=== PATIENT | female | born 1950 | race Two or more races ===

== ENCOUNTER → 2016-03-09 | Outpatient (CLI) | payer OTHER ==
--- NOTE | 2016-03-09 08:59 | MA ---
Screening Digital Mammogram Clinical Indications: Routine screening. Technique: Standard cephalocaudal and mediolateral oblique projections are obtained. This examinati on is processed by the [employer] computer aided detection system. Comparison: October 2013 and May 2010 Breast density: B; There are scattered fibroglandular densities. Findings: CAD was reviewed. No suspicious findings are identified. Impression: Negative mammogram. . BI-RADS 1. Recommendation: Routine screening is recommended in one year. [facility] will send a result letter to the patient. Negative mammography should not preclude additional workup of a clinically suspicious finding. The patient's information is entered into a reminder system with a target due date for her next mammo gram.
== END ==
LOC: BMCIMAGING 08:10
DX: Z12.31 Encounter for screening mammogram for malignant neoplasm of breast (principal)
CPT/HCPCS: G0202

== ENCOUNTER → 2016-03-23 | Outpatient (CLI) | payer OTHER ==
--- NOTE | 2016-03-23 17:15 | MR ---
MRI of the Left Shoulder History: Shoulder pain, evaluate for rotator cuff tendon tear. Injury. Technique: Axial proton density, oblique coronal, and sagittal T1 and T2 sequences were acquired. Findings: Distal supraspinatus tendinosis is associated with a focal high-grade partial thickness bu rsal surface tear of the anterior distal fibers of the supraspinatus at the greater tuberosity footpr int. The infraspinatus tendon is intact. The subscapularis and teres minor appear intact. The long head biceps tendon is normally positioned and intact, with tendinosis through the rotator interval and int raarticular aspect. The glenoid labrum is normal in appearance. No articular cartilage lesion is identified. The acromioclavicular joint is benign in features. No greater tuberosity fracture identified. Impression 1. Distal supraspinatus tendinosis, with focal high-grade partial thickness bursal surface tear of t he anterior distal fibers at the greater tuberosity attachment. 2. Long head biceps tendinosis.
== END ==
LOC: FIMAGING 10:26
PROVIDERS: ATTEND Orthopaedic Surgery
DX: M75.32 Calcific tendinitis of left shoulder (principal); M75.22 Bicipital tendinitis, left shoulder

== ENCOUNTER 2016-12-13 09:51 | Emergency (ER) | payer OTHER ==
[2016-12-13 10:05] VITALS: TEMP 98.1
[2016-12-13] MEDS ORDERED: KETAMINE 100 MG/10 ML SYR IVP ONE ×2 (10:14)
--- NOTE | 2016-12-13 10:22 | CPEKG ---
Heart Rate: 56 RR Interval: 1071 P-R Interval: 172 QRSD Interval: 78 QT Interval: 464 QTC Interval: 448 P [place]: 39 QRS [place]: -17 T Wave [place]: -19 EKG Severity - BORDERLINE ECG - EKG Impression: SINUS RHYTHM EKG Impression: PROBABLE LEFT ATRIAL ABNORMALITY EKG Impression: BORDERLINE LEFT AXIS DEVIATION EKG Impression: BORDERLINE T ABNORMALITIES, INFERIOR LEADS Electronically Signed By: Milagro Russo 13-Dec-2016 14:54:15
--- NOTE | 2016-12-13 10:29 | EDPHY ---
H & P Stated Complaint: Seen at [facility] yesterday;dx'd w/UTI,started antibx;still has abd pain/brower Time Seen by Provider: 12/13/16 10:08 HPI/ROS: CHIEF COMPLAINT: migraine, epigastric pain HISTORY OF PRESENT ILLNESS: 66-year-old female history of chronic migraine complaining of epigastric pain since last evening. She was seen at a [facility] yesterday morning for complaints of migraine and also diagnosed with UTI and started on Keflex. She has had nausea vomiting however this is consistent with her chronic headache. She currently is complaining of a non thunderclap holocephalic headache as well which was not relieved with Imitrex. Bowel movements have been normal. No dyspnea. No syncope or near syncope. No gait instability. No head injury. No slurred speech. PRIMARY CARE PROVIDER: Dr. Audra Phelps REVIEW OF SYSTEMS: A ten point review of systems was performed and is negative with the exception of the items mentioned in the HPI PAST MEDICAL & SURGICAL HISTORY: Chronic migraine. No history of abdominal surgeries or chronic abdominal pathology. SOCIAL HISTORY: nonsmoker PHYSICAL EXAM (Prior to examination, patient consented to physical exam, hands were washed and my usual and customary physical exam procedures followed) 1) GENERAL: Well-developed, well-nourished, alert and oriented. Appears anxious , she is tearful, hyperventilating . 2) HEAD: Normocephalic, atraumatic 3) HEENT: Pupils equal, round, reactive to light bilaterally. Sclera anicteric. Nasopharynx, oropharynx, clear, no lesions. Ears bilaterally with normal tympanic membranes. 4) NECK: Full range of motion, no meningeal signs. 5) LUNGS: Clear auscultation bilaterally, no wheezes, no rhonchi, no retractions. 6) HEART: Regular rate and rhythm, no murmur, no heave, no gallop. 7) ABDOMEN: Tender to palpation epigastrium negative McBurney's, negative Gardner's, negative Rovsing's, negative peritoneal sign, 8) MUSCULOSKELETAL: Moving all extremities, no focal areas of tenderness, no obvious trauma. No peripheral edema or discoloration. 9) BACK: No CVA tenderness, no midline vertebral tenderness, no fluctuance, no step-off, no obvious trauma, no visual or palpable abnormality. 10) SKIN: No rash, no petechiae. 11) Psychiatric: Patient is oriented X 3, there is no agitation. 12) NEURO: Awake, alert, and oriented to person, place and time. Answers questions appropriately. There were no obvious focal neurologic abnormalities. No cerebellar dysfunction. Cranial nerves 2 through to 12 intact. Normal steady gait. Upper and lower extremities bilaterally with strength 5 / 5, reflexes 2+. DIFFERENTIAL DIAGNOSIS: My differential diagnosis includes, but is not limited to, acute appendicitis, acute cholecystitis, bowel obstruction, acute pancreatitis, ovarian torsion, gastritis and urinary tract infection. The patient understands that this diagnosis is provisional and can never be 100% accurate. This is a partial list of diagnoses considered. These considerations are based on history, physical exam, past history and reassessment. - Personal History Current Tetanus Diphtheria and Acellular Pertussis (TDAP): Yes - Medical/Surgical History Hx Asthma: No Hx Chronic Respiratory Disease: No Hx Diabetes: No Hx Cardiac Disease: No Hx Renal Disease: No Hx Cirrhosis: No Hx Alcoholism: No Hx HIV/AIDS: No Hx Splenectomy or Spleen Trauma: No Other PMH: MIGRAINES - Social History Smoking Status: Former smoker Constitutional: Initial Vital Signs Temperature (C) 36.7 C 12/13/16 10:02 Heart Rate 65 12/13/16 10:02 Respiratory Rate 20 12/13/16 10:02 Blood Pressure 151/75 H 12/13/16 10:02 O2 Sat (%) 98 12/13/16 10:02 O2 Delivery Mode Room Air Allergies/Adverse Reactions: ibuprofen [From Advil] Allergy (Verified 12/13/16 10:05) Home Medications: Medication Instructions Recorded Cephalexin [Keflex (*)] 500 mg PO 12/13/16 Medical Decision Making - Diagnostics Imaging Results: Imaging Impressions Chest X-Ray 12/13/16 10:17 Impression: Decreased inspiration. Suspect new diffuse interstitial lung disease. Might this patient have early viral (?influenza) pneumonia? Abdomen CT 12/13/16 12:15 Impression: 1. Diverticulosis without definite diverticulitis. 2. Circumferential wall thickening in the rectum. Differential would include hemorrhoids, inflammation, or carcinoma. 3. No evidence for appendicitis. 4. Mild fibrosis of both lower lobes. 5. Multilevel degenerative change lumbar spine. Grade 1 anterior spondylolisthesis of L4 on L5. Results called and discussed with Bonny Polo at 1312 hours 13 December 2016. ED Course/Re-evaluation: 10:20 a.m.: Discussed the case with secondary supervising physician Dr. Russo. The patient is quite anxious at this time complaining epigastric, chest, headache pain pain. Will administer IV ketamine and re-evaluate. 12:10 p.m.: Re-evaluation, abdominal pain has resolved. However upon palpation abdomen she is point tender to palpation left lower quadrant. We discussed possibility of diverticulitis. Indications risks benefits of CT imaging discussed and she consents. 1:50 p.m.: Re-evaluation, she is feeling improvement, abdominal pain and headache resolved. She was given further dose of IV Decadron for her headache. We discussed her imaging results showing no evidence of diverticulitis or appendicitis or bowel obstruction. She is noted to have continued bacteriuria and pyuria and recommend she continue on her Keflex. Will also add Pyridium to her medication regimen. We also discussed the thickening of the rectum seen on CT imaging. Patient denies pain with defecation. She has previously seen [facility] 5 years ago for colonoscopy. Recommend follow up with Gastroenterology. Informed that malignancy is not ruled out. Regarding the patient's headache, she has a longstanding history of chronic migraine, this feels like her usual migraine which is not relieved with Imitrex. She has subsequent relief of symptoms with Toradol and ketamine. She was also given IV Decadron. Furthermore she has a nonfocal neurologic exam. Do not think that CT imaging the head indicated, doubt subarachnoid hemorrhage, doubt intracranial hemorrhage, doubt malignancy. Doubt cardiac etiology in the absence of a normal troponin symptoms occurring for at least 12 hours. The patient feels comfortable being discharged. All questions and concerns addressed by myself. At Discharge she appears well, smiling. - Data Points Laboratory Results: Laboratory Results 12/13/16 10:20 12/13/16 10:20 12/13/16 12/13/16 12/13/16 11:20 10:20 10:20 WBC 10.87 10^3/uL H 10^3/uL (3.80-9.50) RBC 4.79 10^6/uL 10^6/uL (4.18-5.33) Hgb 15.1 g/dL g/dL (12.6-16.3) Hct 43.8 % % (38.0-47.0) MCV 91.4 fL fL (81.5-99.8) MCH 31.5 pg pg (27.9-34.1) MCHC 34.5 g/dL g/dL (32.4-36.7) RDW 12.6 % % (11.5-15.2) Plt Count 267 10^3/uL 10^3/uL (150-400) MPV 9.7 fL fL (8.7-11.7) Neut % (Auto) 74.7 % H % (39.3-74.2) Lymph % (Auto) 18.2 % % (15.0-45.0) Chambers % (Auto) 4.7 % % (4.5-13.0) Eos % (Auto) 1.1 % % (0.6-7.6) Baso % (Auto) 0.5 % % (0.3-1.7) Nucleat RBC Rel Count 0.0 % % (0.0-0.2) Absolute Neuts (auto) 8.12 10^3/uL H 10^3/uL (1.70-6.50) Absolute Lymphs (auto) 1.98 10^3/uL 10^3/uL (1.00-3.00) Absolute Monos (auto) 0.51 10^3/uL 10^3/uL (0.30-0.80) Absolute Eos (auto) 0.12 10^3/uL 10^3/uL (0.03-0.40) Absolute Basos (auto) 0.05 10^3/uL 10^3/uL (0.02-0.10) Absolute Nucleated RBC 0.00 10^3/uL 10^3/uL (0-0.01) Immature Gran % 0.8 % % (0.0-1.1) Immature Gran # 0.09 10^3/uL 10^3/uL (0.00-0.10) Sodium 138 mEq/L mEq/L (134-144) Potassium 3.8 mEq/L mEq/L (3.5-5.2) Chloride 104 mEq/L mEq/L (97-110) Carbon Dioxide 23 mEq/l mEq/l (22-31) Anion Gap 11 mEq/L mEq/L (8-16) BUN 9 mg/dL mg/dL (7-23) Creatinine 0.6 mg/dL mg/dL (0.6-1.0) Estimated GFR > 60 Glucose 117 mg/dL H mg/dL (70-100) Calcium 8.9 mg/dL mg/dL (8.5-10.4) Total Bilirubin 0.5 mg/dL mg/dL (0.1-1.4) Conjugated Bilirubin 0.1 mg/dL mg/dL (0.0-0.5) Unconjugated Bilirubin 0.4 mg/dL mg/dL (0.0-1.1) AST 35 IU/L IU/L (14-46) ALT 40 IU/L IU/L (9-52) Alkaline Phosphatase 95 IU/L IU/L (38-126) Troponin I < 0.012 ng/mL ng/mL (0.000-0.034) Total Protein 7.0 g/dL g/dL (6.3-8.2) Albumin 4.2 g/dL g/dL (3.5-5.0) Lipase 63 IU/L IU/L (23-300) Urine Color YELLOW Urine Appearance HAZY Urine pH 7.0 (5.0-7.5) Ur Specific Jonancy 1.012 (1.002-1.030) Urine Protein NEGATIVE (NEGATIVE) Urine Ketones NEGATIVE (NEGATIVE) Urine Blood NEGATIVE (NEGATIVE) Urine Nitrate NEGATIVE (NEGATIVE) Urine Bilirubin NEGATIVE (NEGATIVE) Urine Urobilinogen NEGATIVE EU EU (0.2-1.0) Ur Leukocyte Esterase 3+ H (NEGATIVE) Urine RBC 25-50 /hpf H /hpf (0-3) Urine WBC 25-50 /hpf H /hpf (0-3) Ur Epithelial Cells TRACE /lpf /lpf (NONE-1+) Urine Bacteria TRACE /hpf H /hpf (NONE SEEN) Urine Mucus TRACE /lpf /lpf (NONE-1+) Ur Culture Indicated? INDICATED H (NI) Urine Glucose NEGATIVE (NEGATIVE) Medications Given: Discontinued Medications Acetaminophen (Tylenol) 650 mg PO EDNOW ONE Stop: 12/13/16 12:44 Last Admin: 12/13/16 12:47 Dose: Not Given Dexamethasone (Decadron Injection) 10 mg IVP EDNOW ONE Stop: 12/13/16 13:53 Last Admin: 12/13/16 14:14 Dose: 10 mg Ketamine HCl (Ketamine) 14.5 mg 0.2 mg/kg (14.5 mg) IVP EDNOW ONE Stop: 12/13/16 10:15 Last Admin: 12/13/16 10:33 Dose: 14.5 mg Morphine Sulfate (Morphine) 4 mg IVP EDNOW ONE Stop: 12/13/16 12:16 Last Admin: 12/13/16 12:48 Dose: 2 mg Departure - Departure Disposition: Home, Routine, Self-Care Clinical Impression: Abdominal pain Qualifiers: Abdominal location: lower abdomen, unspecified Qualified Code(s): R10.30 - Lower abdominal pain, unspecified Headache Qualifiers: Headache type: unspecified Headache chronicity pattern: acute headache Intractability: not intractable Qualified Code(s): R51 - Headache Condition: Good Instructions: Migraine Headache (ED), Acute Abdominal Pain (ED) Additional Instructions: Seek immediate medical attention if you develop new or worsening symptoms, if you develop fevers, chills, inability to tolerate oral intake or any other symptoms that concerns you. Thickening of your rectum was noted on CT scan. Specific origin of this is not yet completely clear. Recommend you follow up with a geologist petroleum. Referrals: Audra Phelps MD [Primary Care Provider] - 1-2 days without fail Thomas Butler MD [Medical Doctor] - 5-7 days, call for appt. (Dr. Butler is a geologist petroleum)
[2016-12-13 10:31] LABS: PLATELET COUNT 267 10^3/uL (150-400)
[2016-12-13] MEDS ORDERED: IOPAMIDOL (ISOVUE-300) 100 ML BTL ONE ×2 (12:19)
[2016-12-13] MEDS ORDERED: ACETAMINOPHEN 325 MG TAB PO ONE ×2 (12:43)
[2016-12-13] MEDS ORDERED: DEXAMETHASONE 10 MG/ML VIAL IVP ONE ×2 (13:52)
[2016-12-13 14:14] VITALS: RESP 16
[2016-12-13 14:55] VITALS: BP 135/68; PULSE 65; O2SAT 95
== END 2016-12-13 14:57 | disposition home or self-care (01) ==
DX: R10.30 Lower abdominal pain, unspecified (principal); R51 Headache; Z87.891 Personal history of nicotine dependence
CPT/HCPCS: 71020; 74177; 93005; 96374; 96375; 99285; J1100; Q9967

== ENCOUNTER → 2018-02-18 | Outpatient (CLI) | payer OTHER | LOC: BMCIMAGING 12:42 | PROVIDERS: ATTEND Internal Medicine | DX: R22.0 Localized swelling, mass and lump, head (principal); M84.88 Other disorders of continuity of bone, other site ==

== ENCOUNTER → 2018-02-20 | Outpatient (CLI) | payer OTHER ==
[~2018-02-20] MED LIST: IOPAMIDOL (ISOVUE 370) 100 ML BTL IV ONE
== END ==
LOC: FIMAGING 09:32
PROVIDERS: ATTEND Internal Medicine
DX: M89.9 Disorder of bone, unspecified (principal)
CPT/HCPCS: 70470; Q9967; 82565-PO

== ENCOUNTER → 2018-02-25 | Outpatient (CLI) | payer OTHER ==
[~2018-02-25] MED LIST changes: -IOPAMIDOL (ISOVUE 370) 100 ML BTL IV ONE; +LIDOCAINE 1% 300 MG/30 ML SDV ONE
== END ==
LOC: FIMAGING 07:06
PROVIDERS: ATTEND Internal Medicine
PROC: 0NB Head and Facial Bones, Excision (ICD-10-PCS; principal; 2018-02-25)
DX: C44.40 Unspecified malignant neoplasm of skin of scalp and neck (principal)

== ENCOUNTER 2018-03-19 10:05 | Day surgery (SDC) | payer OTHER ==
[2018-03-19] MEDS ORDERED: fentaNYL 100 MCG/2 ML INJ ONE ×2 (10:35→12:48)
[2018-03-19] MEDS ORDERED: MIDAZOLAM 2 MG/2 ML VIAL ONE (10:35)
[2018-03-19] MEDS ORDERED: MEPERIDINE 25 MG/ML SYR IVP PRN (10:39)
[2018-03-19] MEDS ORDERED: FLUMAZENIL 0.5 MG/5 ML MDV IVP PRN (10:39)
[2018-03-19] MEDS ORDERED: ALTEPLASE 2 MG VIAL IVP PRN (10:39)
[2018-03-19] MEDS ORDERED: NALOXONE HCL 0.4 MG/ML INJ IVP PRN (10:39)
[2018-03-19] MEDS ORDERED: PROTAMINE SULFATE 50 MG/5 ML VIAL IVP PRN (10:39)
[2018-03-19] MEDS ORDERED: HEPARIN 10,000 UNIT/10 ML MDV (1,000 UNIT/ML) IVP PRN (10:39)
[2018-03-19] MEDS ORDERED: MIDAZOLAM 2 MG/2 ML VIAL IVP PRN (10:39)
[2018-03-19] MEDS ORDERED: fentaNYL 100 MCG/2 ML INJ IVP PRN (10:39)
[2018-03-19] MEDS ORDERED: GLUCAGON HCL 1 MG VIAL IVP PRN (10:39)
[2018-03-19] MEDS ORDERED: NS 1,000 ML IV SCH (10:45)
[2018-03-19 11:16] LABS: INR 1.06 (0.83-1.16)
[2018-03-19] MEDS ORDERED: LIDOCAINE 1% 300 MG/30 ML SDV ONE (11:25)
[2018-03-19] MEDS ORDERED: ONDANSETRON 4 MG/2 ML VIAL IVP PRN (12:26)
[2018-03-19] MEDS ORDERED: oxyCODONE IR 5 MG TAB PO PRN (12:27)
[2018-03-19] MEDS ORDERED: fentaNYL 100 MCG/2 ML INJ IVP ONE ×2 (13:00→13:15)
[2018-03-19 15:59] VITALS: BP 110/62
== END 2018-03-19 18:05 | disposition home or self-care (01) ==
LOC: FIMAGING 10:05
PROVIDERS: ATTEND Internal Medicine Hematology & Oncology
DX: R91.8 Other nonspecific abnormal finding of lung field (principal); J95.811 Postprocedural pneumothorax; C80.1 Malignant (primary) neoplasm, unspecified; M85.89 Other specified disorders of bone density and structure, multiple sites
CPT/HCPCS: J2250; J3010

== ENCOUNTER 2018-05-05 17:02 | Inpatient (IN) | payer OTHER ==
[2018-05-05] MEDS ORDERED: NS 1,000 ML IV ONE ×2 (17:29→19:40)
[2018-05-05] MEDS ORDERED: ONDANSETRON 4 MG/2 ML VIAL IVP ONE (17:29)
[2018-05-05] MEDS ORDERED: ACETAMINOPHEN 500 MG TAB PO ONE (17:29)
[2018-05-05 17:34] LABS: PLATELET COUNT 528 10^3/uL (150-400)
[2018-05-05] MEDS ORDERED: AZITHROMYCIN IV 500 MG in D5W 250 ML IV ONE (19:40)
--- NOTE | 2018-05-05 19:44 | EDPHY ---
H & P Stated Complaint: chemo 2 wks ago for lung cancer/fever eyes hurt Time Seen by Provider: 05/05/18 17:12 HPI/ROS: CHIEF COMPLAINT: Fever and malaise HISTORY OF PRESENT ILLNESS: This is a 68-year-old female recently diagnosed with lung cancer. 2 weeks ago she received her 1st chemotherapy--Keytruda, pemetrexed, and carboplatin. Since then she has had intermittent fevers, with reported temperatures over 100.8 F occur mostly at night. She has taken Tylenol on and off for these fevers. She also reports nausea, some retching, but no actual vomiting. She has had a cough, no significant shortness of breath. Her appetite is decreased and she is not taking much in the way of solid food but is able to drink lots of water. She underwent a lung biopsy in early March and tells me that during that procedure, while lying on her stomach, she had the acute onset of pain at the site of the biopsy needle and also pain in her right leg. She continues with some pain in her low right thorax and tells me that she also has some pain in her right lower leg. She denies swelling of her calf. She does not have calf tenderness. REVIEW OF SYSTEMS: A ten system review of systems was performed and is negative with the exception of the items mentioned in the HPI. Past medical history: Lung cancer Past surgical history: CT-guided lung biopsy March 2018 Social history: She is and her accompanies her here [place]. She has a remote history of smoking, quit at least 15 years ago, and states that she was never a heavy smoker. General Appearance: Alert. Vital signs reviewed. Blood pressure 136/64, heart rate 111. Eyes: Pupils equal and round, no conjunctival injection, no discharge. Anicteric. ENT, Mouth: Mucous membranes are moist, no oropharyngeal erythema or edema. Neck: No lymphadenopathy, supple. Respiratory: Lungs are clear to auscultation; no wheezes, rales, or rhonchi. Cardiovascular: Regular rate and rhythm; no murmur, rub, or gallop. Gastrointestinal: Abdomen is soft and nontender, no masses or organomegaly, bowel sounds normal. Skin: Warm and dry, no rashes on exposed skin, normal color. Back: Nontender to palpation over the thoracolumbar spine. No CVAT. Extremities: No lower extremity edema, no calf tenderness or swelling. Neurological: Alert and oriented. Moving all four extremities easily and equally. RA. EOMI. Facial expressions symmetric. Tongue midline. Psychiatric: Normal affect. - Personal History Current Tetanus Diphtheria and Acellular Pertussis (TDAP): Yes - Medical/Surgical History Hx Asthma: No Hx Chronic Respiratory Disease: No Hx Diabetes: No Hx Cardiac Disease: No Hx Renal Disease: No Hx Cirrhosis: No Hx Alcoholism: No Hx HIV/AIDS: No Hx Splenectomy or Spleen Trauma: No Other PMH: Migraines. Lung Tumor. Vertigo. Ankle Surgery s/p fall November 2017. Pneumonia 2013 - Social History Smoking Status: Former smoker Constitutional: Initial Vital Signs Temperature (C) 38.2 C 05/05/18 17:07 Heart Rate 111 H 05/05/18 17:07 Respiratory Rate 16 05/05/18 17:07 Blood Pressure 136/64 H 05/05/18 17:07 O2 Sat (%) 92 05/05/18 17:07 O2 Delivery Mode Room Air O2 (L/minute) 2 Allergies/Adverse Reactions: ibuprofen [From Advil] Allergy (Verified 05/05/18 17:05) Home Medications: Medication Instructions Recorded Acetaminophen [Tylenol ES 500 mg 500 - 1,000 mg PO BID PRN 05/05/18 (*)] Chemo 1 each IV Q21D 05/05/18 Folic Acid [Folic Acid] 1 mg PO DAILY 05/05/18 Medical Decision Making ED Course/Re-evaluation: 68-year-old female with a recent diagnosis of lung cancer for which she has received her 1st dose of chemotherapy consisting of an immuno therapeutic agent , Keytruda, pemetrexed, and carboplatin. She is here with fever and worsening cough. She reports general malaise. She does not meet sepsis screening criteria. Chest x-ray suspicious for right lower lobe pneumonia. In the emergency department she initially received 1 L of IV normal saline. She received 1 g of Tylenol and defervesced. She was given azithromycin and ceftriaxone for treatment of suspected pneumonia. Her lactate is normal. She is being admitted to the hospitalist service. I have spoken with Dr. Remy Lowry, her oncologist. Patient noted to be hypotensive around quarter of 8:00 p.m.. Systolic blood pressure was in the 90s. She was completely asymptomatic. A 2nd L of IV fluid was hung. She has been up ambulating with this blood pressure and remains asymptomatic. Differential Diagnosis: Considered a differential diagnosis including but not limited to neutropenic fever, urinary tract infection, pulmonary infectious process, COPD, asthma, pulmonary embolus and congestive heart failure. - Data Points Laboratory Results: Laboratory Results 05/05/18 17:26 05/05/18 18:16 Medications Given: Acetaminophen (Tylenol) 650 mg PO Q4HRS PRN PRN Reason: Pain, Mild/Fever, Can Take PO Stop: 11/01/18 19:55 Last Admin: 05/06/18 15:36 Dose: 650 mg Folic Acid (Folic Acid) 1 mg PO DAILY [facility] Stop: 11/02/18 08:59 Last Admin: 05/06/18 09:31 Dose: 1 mg Guaifenesin/Codeine Phosphate (Robitussin Ac) 10 ml PO Q6HRS PRN PRN Reason: Cough, Moderate Stop: 11/01/18 21:22 Last Admin: 05/06/18 09:31 Dose: 10 ml Sodium Chloride (Ns) 1,000 mls @ 100 mls/hr IV CONT HENRY Stop: 11/01/18 19:59 Last Admin: 05/06/18 06:26 Dose: 1,000 mls Discontinued Medications Acetaminophen (Tylenol) 1,000 mg PO EDNOW ONE Stop: 05/05/18 17:30 Last Admin: 05/05/18 17:36 Dose: 1,000 mg Albuterol/Ipratropium (Duoneb) 3 ml IH QID HENRY Stop: 11/01/18 20:59 Last Admin: 05/06/18 11:10 Dose: Not Given Sodium Chloride (Ns) 1,000 mls @ 0 mls/hr IV EDNOW ONE; Wide Open PRN Reason: Protocol Stop: 05/05/18 17:30 Last Admin: 05/05/18 17:35 Dose: 1,000 mls Sodium Chloride (Ns) 1,000 mls @ 0 mls/hr IV EDNOW ONE; Wide Open PRN Reason: Protocol Stop: 05/05/18 19:41 Last Admin: 05/05/18 19:43 Dose: 1,000 mls Azithromycin 500 mg/ Dextrose 255 mls @ 255 mls/hr IV EDNOW ONE PRN Reason: Protocol Stop: 05/05/18 20:39 Last Admin: 05/05/18 20:04 Dose: 255 mls Ceftriaxone Sodium/Dextrose (Rocephin 1 Gm (Premix)) 50 mls @ 100 mls/hr IV EDNOW ONE PRN Reason: Protocol Stop: 05/05/18 20:09 Last Admin: 05/05/18 19:46 Dose: 50 mls Ondansetron HCl (Zofran) 4 mg IVP EDNOW ONE Stop: 05/05/18 17:30 Last Admin: 05/05/18 17:35 Dose: Not Given Departure - Departure Disposition: [facility] Inpatient Acute Clinical Impression: Pneumonia Qualifiers: Pneumonia type: due to unspecified organism Laterality: right Lung location: lower lobe of lung Qualified Code(s): J18.1 - Lobar pneumonia, unspecified organism Condition: Good
[2018-05-05] MEDS ORDERED: ONDANSETRON 4 MG/2 ML VIAL IVP PRN (19:56)
[2018-05-05] MEDS ORDERED: ALBUTEROL 3 ML DEYVIAL IH PRN (19:56)
[2018-05-05] MEDS ORDERED: ONDANSETRON DISINTEGRATING 4 MG TAB PO PRN (19:56)
[2018-05-05] MEDS ORDERED: oxyCODONE IR 5 MG TAB PO PRN (19:56)
[2018-05-05] MEDS ORDERED: HYDROmorphONE/DILAUDID 1 MG/ML INJ IVP PRN (19:56)
[2018-05-05] MEDS ORDERED: PROMETHAZINE HCL 25 MG/ML INJ IVP PRN (19:56)
[2018-05-05] MEDS ORDERED: HYDROCODONE/APAP 5/325 TAB PO PRN (19:56)
--- NOTE | 2018-05-05 20:57 | PDGENHP ---
History and Physical - Chief Complaint fevers, cough - History of Present Illness 68 yo F with recent diagnosis of lung cancer presenting with complaints of fever and night sweats and cough persistently for the last month. She notes her diagnosis of lung cancer was made following discovering a lump on her head in February. Her scalp was biopsied and found to be consistent with a malignancy at that time, appearing to be metastatic. Scans of her chest, abdomen and pelvis revealed a right lower lobe lung mass that was thought to be the primary and also biopsied showing poorly differentiated carcinoma with markers consistent with either NSCLC or an upper GI origin. She has been followed by Dr. Lowry and began chemotherapy 2 weeks ago, though she did not recall what the name of it was. She notes that several days after her first round of chemo she became more lethargic and the fevers that she was already having daily along with soaking night sweats seemed to increase. This was accompanied by severe cough that was at times productive of clear sputum. She has called her oncologists office about this several times per her report and was told to take tylenol for the fever and as such has been taking 1000mg tylenol four times a day every day for at least the last month, and in fact, she thinks she has been taking that since February. She has no energy and has difficulty getting done just her usual ADLs. Her cough is at times so severe that she will have associated retching and near vomiting. She notes that she has been overwhelmed with this recent diagnosis anyway, but with the fever and cough her life feels unmanageable. History Information - Allergies/Home Medication List Allergies/Adverse Reactions: ibuprofen [From Advil] Allergy (Verified 05/05/18 17:05) Home Medications: Acetaminophen [Tylenol ES 500 mg (*)] 500 - 1,000 mg PO BID PRN 05/05/18 [Last Taken Unknown] Chemo 1 each IV Q21D 05/05/18 [Last Taken 04/18/18] Folic Acid [Folic Acid] 1 mg PO DAILY 05/05/18 [Last Taken 05/05/18] I have personally reviewed and updated: family history, medical history, social history, surgical history - Past Medical History cancer (lung cancer, presumably NSCLC), hyperlipidemia Additional medical history: osteopenia - Surgical History Additional surgical history: ankle and shoulder surgery - Family History Positive for: non-pertinent - Social History Smoking Status: Former smoker (brief and remote smoking hx, quit in her 20s, never a heavy smoker) Alcohol Use: None Drug Use: None Additional social history: , 2 adult children, lives independently with her Review of Systems Review of Systems: ROS: 10pt was reviewed & negative except for what was stated in HPI & below Physical Exam Physical Exam: Temp Pulse Resp BP Pulse Ox 38.2 C 90 18 96/60 L 96 05/05/18 17:07 05/05/18 19:19 05/05/18 19:19 05/05/18 19:19 05/05/18 19:19 O2 (L/minute) 2 Constitutional: appears nourished, uncomfortable Eyes: PERRL, anicteric sclera Ears, Nose, Mouth, Throat: hearing normal, dry mucous membranes Cardiovascular: regular rate and rhythym, no murmur, rub, or gallop, No edema Respiratory: bronchial breath sounds, respiratory distress, rhonchi (right lower lobe) Gastrointestinal: normoactive bowel sounds, soft, non-tender abdomen Genitourinary: no bladder tenderness Skin: warm, normal color Musculoskeletal: full muscle strength Neurologic: AAOx3 Psychiatric: interacting appropriately, not anxious, not encephalopathic Lab Data & Imaging Review 05/05/18 17:26 05/05/18 18:16 WBC 8.36 10^3/uL (3.80-9.50) 05/05/18 17:26 RBC 4.43 10^6/uL (4.18-5.33) 05/05/18 17:26 Hgb 12.4 g/dL (12.6-16.3) L 05/05/18 17:26 Hct 39.1 % (38.0-47.0) 05/05/18 17:26 MCV 88.3 fL (81.5-99.8) 05/05/18 17:26 MCH 28.0 pg (27.9-34.1) 05/05/18 17:26 MCHC 31.7 g/dL (32.4-36.7) L 05/05/18 17:26 RDW 14.9 % (11.5-15.2) 05/05/18 17:26 Plt Count 528 10^3/uL (150-400) H 05/05/18 17:26 MPV 8.9 fL (8.7-11.7) 05/05/18 17:26 Neut % (Auto) 54.7 % (39.3-74.2) 05/05/18 17:26 Lymph % (Auto) 28.3 % (15.0-45.0) 05/05/18 17:26 Gray % (Auto) 13.8 % (4.5-13.0) H 05/05/18 17:26 Eos % (Auto) 0.2 % (0.6-7.6) L 05/05/18 17:26 Baso % (Auto) 0.5 % (0.3-1.7) 05/05/18 17: Nucleat RBC Rel Count 0.0 % (0.0-0.2) 05/05/18 17:26 Absolute Neuts (auto) 4.57 10^3/uL (1.70-6.50) 05/05/18 17:26 Absolute Lymphs (auto) 2.37 10^3/uL (1.00-3.00) 05/05/18 17:26 Absolute Monos (auto) 1.15 10^3/uL (0.30-0.80) H 05/05/18 17:26 Absolute Eos (auto) 0.02 10^3/uL (0.03-0.40) L 05/05/18 17:26 Absolute Basos (auto) 0.04 10^3/uL (0.02-0.10) 05/05/18 17: Absolute Nucleated RBC 0.00 10^3/uL (0-0.01) 05/05/18 17:26 Immature Gran % 2.5 % (0.0-1.1) H 05/05/18 17: Immature Gran # 0.21 10^3/uL (0.00-0.10) H 05/05/18 17:26 VBG Lactic Acid 0.9 mmol/L (0.7-2.1) 05/05/18 19:12 Sodium 131 mEq/L (135-145) L 05/05/18 18:16 Potassium 4.2 mEq/L (3.5-5.2) 05/05/18 18:16 Chloride 100 mEq/L (97-110) 05/05/18 18:16 Carbon Dioxide 25 mEq/l (22-31) 05/05/18 18:16 Anion Gap 6 mEq/L (6-14) 05/05/18 18:16 BUN 6 mg/dL (7-23) L 05/05/18 18:16 Creatinine 0.5 mg/dL (0.6-1.0) L 05/05/18 18:16 Estimated GFR > 60 05/05/18 18:16 Glucose 106 mg/dL (70-100) H 05/05/18 18:16 Calcium 8.2 mg/dL (8.5-10.4) L 05/05/18 18:16 Urine Color PALE YELLOW 05/05/18 18:42 Urine Appearance CLEAR 05/05/18 18:42 Urine pH 7.0 (5.0-7.5) 05/05/18 18:42 Ur Specific [place] 1.005 (1.002-1.030) 05/05/18 18:42 Urine Protein NEGATIVE (NEGATIVE) 05/05/18 18:42 Urine Ketones NEGATIVE (NEGATIVE) 05/05/18 18:42 Urine Blood NEGATIVE (NEGATIVE) 05/05/18 18:42 Urine Nitrate NEGATIVE (NEGATIVE) 05/05/18 18:42 Urine Bilirubin NEGATIVE (NEGATIVE) 05/05/18 18:42 Urine Urobilinogen NEGATIVE EU (0.2-1.0) 05/05/18 18:42 Ur Leukocyte Esterase NEGATIVE (NEGATIVE) 05/05/18 18:42 Urine Glucose NEGATIVE (NEGATIVE) 05/05/18 18:42 Visualized and Interpreted Chest x-ray results: Yes Chest X-Ray results: infiltrate (RLL) Assessment & Plan Assessment: Pneumonia (Acute) 68 yo F with recent diagnosis of lung cancer, recently started on chemotherapy, presenting with fever, sob and cough and cxr concerning for pna # pna: evidence of RLL PNA on cxr, same region as her tumor which is not clearly visualized bu t suspect post obstructive pna. Started on ctx/azithro, blood cultures and respiratory pathogen panel pending. # recurrent fever: with e/o pna on imaging as above but patient possibly having fever due to her underlying lung cancer which we discussed. She has been taking the maximum dose of tylenol for several months per her report and that is concerning as well, allergic to ibuprofen. Will check LFTS--did have mild transaminitis recently on labs. # metastatic lung cancer: with met to scalp at time of diagnosis and not surgical candidate therefore, has started chemo, actually diagnosis not clear based on path available in our system but likely non small cell lung cancer. Followed by [facility], oncology consulted by ER and will evaluate patient in am. Next chemo due in over a week. # hyponatremia: suspect this is hypovolemic hyponatremia, gentle IVF overnight # generalized weakness: due in part to chemo and likely to pna as well, some component of emotionally overwhelmed by her recent diagnosis, will get pt/ot involved # IP status, will likely require > 48 hours stay for eval/mgmt of above Patient new to my care. Old records reviewed and summarized as above. Care plan reviewed with ER doctor, further hx obtained from patients present at bedside.
[2018-05-05] MEDS ORDERED: guaiFENesin/CODEINE PHOS 10 ML UDCUP PO PRN (21:23)
[2018-05-05] MEDS: IPRATROPIUM/ALBUTEROL 3 ML DEYVIAL IH SCH (23:05)
[2018-05-06] MEDS: ACETAMINOPHEN 325 MG TAB PO PRN ×2 (03:51→15:36)
[2018-05-06 05:19] LABS: PLATELET COUNT 488 10^3/uL (150-400)
--- NOTE | 2018-05-06 06:04 | PDMN ---
Medical Necessity Medical necessity: Pt meets inpt criteria per MD order and M282, Pneumonia, A-2 days. 68 y/o w/recent dx of lung CA and recently started on chemo presenting w/ fever, night sweats, cough which is severe at times, and SOB. CXR shows evidence of RLL PNA, Admitted w/suspected post obstructive PNA, recurrent fevers , hyponatremia, and gen weakness. IVF, IV ABX's, 2L O2, onc consult pending, PT/ OT evals pending. Anticipate>2MN for management of above.
[2018-05-06] MEDS: IPRATROPIUM/ALBUTEROL 3 ML DEYVIAL IH SCH ×3 (06:24→22:20)
[2018-05-06] MEDS: NS 1,000 ML IV SCH (06:26)
[2018-05-06] MEDS: FOLIC ACID 1 MG TAB PO SCH (09:31)
[2018-05-06] MEDS ORDERED: IPRATROPIUM/ALBUTEROL 3 ML DEYVIAL IH PRN (11:30)
--- NOTE | 2018-05-06 14:27 | GCON ---
[f rep st] CONSULTATION HISTORY OF PRESENT ILLNESS: The patient is a 68-year-old female, who has a recent diagnosis of presu med lung carcinoma. To review, the patient presented with a lump on her scalp. This was associated with a lesion in the right parietal bone. A fine-needle aspirate showed malignant cells, which were cytokeratin positive. This was felt to be a poorly differentiated carcinoma. TTF-1 was negative, an d S100 was negative. Additional imaging studies included a PET-CT scan, which showed an intensely FD G avid right lower lobe mass measuring 3.5 x 2.5 cm. There were FDG avid right hilar and mediastinal lymph nodes. There was focal uptake anterior to the left hepatic lobe without CT correlate. A biop sy of the lung mass showed a similar finding, i.e., a moderately to poorly differentiated carcinoma, expressing pancytokeratin CK7, high molecular weight cytokeratin CEA, and patchy weak CDX2. Differen tial included a [id number] lung carcinoma, lacking TTF-1 versus a carcinoma of upper GI origin. It was ER, WA, and PAX8 negative. Given the radiologic findings, it was felt that this most likely r epresented a lung carcinoma, and she was started on chemotherapy with pemetrexed, Carboplatin, and Ke ytruda. I should note that a lung cancer panel showed no alterations in ALK, BRAF, EGFR, ERBB2, HRAS , KRAS, MET, and NRAS. There were no reportable fusions in ALK, RET, ROS, or NTRK1. PDL1 expression was 0%. She has been troubled by a persistent cough and some low-grade fevers. [facility], and chest x-ray showed some haziness in her right lower lobe. She was admitt ed for further evaluation. She was started on antibiotics and currently feels better. PAST MEDICAL HISTORY: Significant for hyperlipidemia. She has a brief smoking history. She is mario ied and accompanied by her . REVIEW OF SYSTEMS: Negative except as discussed in the HPI. PHYSICAL EXAMINATION: GENERAL: She is currently resting quietly. She does cough with deep inspirat ion. VITAL SIGNS: Blood pressure 106/67, heart rate 93, T-max is 99.5, and room air saturation curr ently is 94%. HEENT: She is not icteric. CARDIAC: Exam shows normal S1 and S2 without murmurs, cl icks, or added sounds. LUNGS: Somewhat decreased breath sounds, and exam is difficult as it trigger s a cough. ABDOMEN: Normal bowel sounds. EXTREMITIES: No edema. NEUROLOGIC: Exam is nonfocal. LABORATORY DATA: Sodium is 134, potassium 4.4, chloride 102, creatinine 0.5, and albumin 2.7. White count 7.69, hemoglobin 11.4, hematocrit 36.2, and platelets 488,000. IMPRESSION: Patient with presumed lung carcinoma presenting as a solitary skeletal metastasis. Ther e is a question of disease in the liver, but without CT correlate. She was started on combined modal ity chemotherapy, and I should note that the lump in her scalp has resolved. She is troubled by pers istent cough and low-grade fever, so the possibility of pneumonia is entertained. PLAN: Continue with IV antibiotics. I am going to obtain a CT scan of the chest and compare it to h er CT study. The outside possibility of something such as a pneumonitis related to her immunotherapy is also a consideration. We will try to avoid steroids for now as it may interfere with her immunot herapy. She has not had an MRI of the brain, but did have a CT scan of the head prior to treatment, which did not show [employer]INEER metastasis. Our service will follow with you. /[id number]/MODL
--- NOTE | 2018-05-06 16:18 | HOSPPROG ---
Hospitalist Progress Note Assessment/Plan: The patient is a 68-year-old female with PMH lung cancer who was admitted for spiking fevers which started 2 weeks prior and was found to have postobstructive pneumonia. ASSESSMENT/PLAN: Community acquired PNA Sepsis w/ Fevers and tachycardia, 2/2 above Lung carcinoma, on immunotherapy/chemotherapy Hyponatremia, improved Anemia, stable Hyperlipidemia -SVNs, CPT, O2 as needed. -IV Abx - ceftriaxone, azithromycin. -D/w Oncologist - recs appreciated. Check CT chest wwo contrast. -FU blood Cx. -Continue IV fluids. VTE prophylaxis: Lovenox Code Status: Full code Status: inpt for > 2 midnight stay. Disposition: [facility] SUBJECTIVE: Today pt has no pain. Has had fevers this afternoon. Not on O2. OBJECTIVE: Physical Exam: General: The patient is a thin elderly female who is alert and in no acute distress. HEENT: normocephalic, extraocular movements intact, conjunctivae clear. Mucous membranes moist. Neck: trachea midline, no visible masses. CV: +S1/S2, RRR, no MRG. Resp: unlabored, CTAB no RRW. Abd: soft and nondistended. Musculoskeletal: Normal muscle tone/bulk. Neuro: cranial nerves II - XII grossly intact. Intact gross motor and sensory function. Psych: Appropriate mood and appropriate affect. Skin: No pallor. No petechiae. Heme/lymph: No peripheral edema at bilateral ankles. Labs/Imaging/Other Tests: Personally reviewed/interpreted. CXR: RLL mass w/ lateral infiltrate. Objective: Vital Signs Temp Pulse Resp BP Pulse Ox 38.8 C H 100 16 128/77 H 94 05/06/18 15:37 05/06/18 15:37 05/06/18 15:37 05/06/18 15:37 05/06/18 15:37 Microbiology 05/05/18 19:12 Respiratory Panel (PCR) - Final Nasal, Sinus - [place] Viral Transport No Organism Detected By Pcr Laboratory Results 05/06/18 04:55 05/06/18 04:55 05/05/18 05/06/18 05/07/18 05:59 05:59 05:59 Intake Total 2560 Balance 2560 - Time Spent With Patient Time Spent with Patient: greater than 35 minutes Time Spent with Patient: Greater than 35 minutes spent on this patients care, greater than 50% of time spent counseling, educating, and coordinating care regarding the above mentioned plan. ICD10 Worksheet Patient Problems: Problems Problem Status Onset Pneumonia Acute
[2018-05-06] MEDS ORDERED: IOPAMIDOL (ISOVUE-300) 100 ML BTL ONE (16:32)
--- NOTE | 2018-05-06 16:42 | ASMTCMCOM ---
CM Note CM Note Notes: 05/06/2018 Case Management Note Discussed pt during rounds this morning. Pt admitted for possible pneumonia with a history of stage 4A non small cell lung cancer. Percy from [facility] palliative team met w/pt. Please see note. Per Percy pt declined referral for outpatient palliative at this time. Discussed w/PT. PT cleared for home. Pt lives with and has supportive family. Case Management d/c poc: anticipating independent with follow up as directed. Case Management to follow. Date Signed: 05/06/2018 04:41 PM Electronically Signed By:Roxie Guevara RN
[2018-05-06] MEDS ORDERED: AZITHROMYCIN IV 500 MG in NS 250 ML IV SCH (20:00)
[2018-05-07 05:05] LABS: PLATELET COUNT 445 10^3/uL (150-400)
[2018-05-07] MEDS: ACETAMINOPHEN 325 MG TAB PO PRN ×2 (07:01→18:32)
[2018-05-07] MEDS: FOLIC ACID 1 MG TAB PO SCH (08:55)
[2018-05-07] MEDS: IPRATROPIUM/ALBUTEROL 3 ML DEYVIAL IH SCH ×3 (09:00→20:07)
--- NOTE | 2018-05-07 11:27 | SOAPPROG ---
SOAP Progress Note Assessment/Plan: Assessment: 1. lung ca, metastatic 2. cough 3. night sweats She says her cough is a bit better and feels antibiotics are helping. CT scan shows progression of disease, this was a comparison from her mar 01 scan, she did not start treatment until 04/18, possibly some progression occurred before starting treatment. Plan:1 more day IV antibiotic,continue chemo immunotherapy either later this week or early next 05/07/18 11:23 Subjective: Feels cough is a bit better Objective: Vital Signs Temp Pulse Resp BP Pulse Ox 98.0 F 86 16 98/66 L 95 05/07/18 10:05 05/07/18 10:05 05/07/18 10:05 05/07/18 10:05 05/07/18 10:05 Microbiology 05/05/18 19:12 Respiratory Panel (PCR) - Final Nasal, Sinus - [place] Viral Transport No Organism Detected By Pcr Laboratory Results 05/07/18 04:46 05/06/18 04:55 05/06/18 05/07/18 05/08/18 05:59 05:59 05:59 Intake Total 2560 1000 Balance 2560 1000 ICD10 Worksheet Patient Problems: Problems Problem Status Onset Pneumonia Acute
[2018-05-07] MEDS ORDERED: AZITHROMYCIN 250 MG TAB PO SCH ×2 (15:00→21:00)
[2018-05-07] MEDS ORDERED: NS W/ 20 KCl/L 1,000 ML IV SCH (15:00)
[2018-05-07] MEDS: NS 1,000 ML IV SCH (15:12)
--- NOTE | 2018-05-07 16:11 | HOSPPROG ---
Hospitalist Progress Note Assessment/Plan: The patient is a 68-year-old female with PMH lung cancer who was admitted for spiking fevers which started 2 weeks prior and was found to have postobstructive pneumonia. ASSESSMENT/PLAN: Community acquired PNA Sepsis w/ Fevers and tachycardia, 2/2 above Lung carcinoma, on immunotherapy/chemotherapy Hyponatremia, improved Anemia, stable Hyperlipidemia -reports improvement with abx. will cont dual abx, change Azithromycin to PO. Check PC tomorrow to help determine duration -Metastatic lung cancer with disease progression on CT chest. Reccs per Oncology -cont nebs as she reports improvement with them, will schedule -reports diarrhea, will obtain C-Diff testing -offered PT but she refused -provide 1 additional bag of IVF VTE prophylaxis: Lovenox Code Status: Full code Status: inpt for > 2 midnight stay. Disposition: medsur Subjective: on RA. repors feeling better. some weakness earlier today Objective: Vital Signs Temp Pulse Resp BP Pulse Ox 36.5 C 89 20 114/64 94 05/07/18 11:25 05/07/18 11:25 05/07/18 11:25 05/07/18 11:25 05/07/18 11:25 Laboratory Results 05/07/18 04:46 05/06/18 04:55 05/06/18 05/07/18 05/08/18 05:59 05:59 05:59 Intake Total 2560 1000 Balance 2560 1000 - Physical Exam Constitutional: no apparent distress Eyes: PERRL, EOMI Ears, Nose, Mouth, Throat: moist mucous membranes, hearing normal Cardiovascular: regular rate and rhythym, No edema Respiratory: no respiratory distress, no rales or rhonchi, clear to auscultation Gastrointestinal: normoactive bowel sounds, soft, non-tender abdomen Skin: warm Neurologic: AAOx3 Psychiatric: interacting appropriately, not anxious, not encephalopathic Lymph, Heme, Immunologic: No petechiae ICD10 Worksheet Patient Problems: Problems Problem Status Onset Pneumonia Acute
[2018-05-08 05:25] LABS: PLATELET COUNT 507 10^3/uL (150-400)
[2018-05-08] MEDS: FOLIC ACID 1 MG TAB PO SCH (09:24)
[2018-05-08] MEDS: IPRATROPIUM/ALBUTEROL 3 ML DEYVIAL IH SCH (10:17)
--- NOTE | 2018-05-08 12:03 | SOAPPROG ---
SOAP Progress Note Assessment/Plan: Assessment: 1. lung ca, metastatic 2. cough 3. night sweats She says her cough is better and feels antibiotics are helping. CT scan shows progression of disease, this was a comparison from her mar 01 scan, she did not start treatment until 04/18, possibly some progression occurred before starting treatment. Plan: Home today on po antibiotics, follow up [facility] for treatment on Saturday05/07/18 11:23 05/08/18 12:02 Subjective: Says she feels well Objective: Vital Signs Temp Pulse Resp BP Pulse Ox 100.3 F 105 H 18 121/77 H 92 05/08/18 08:07 05/08/18 08:07 05/08/18 08:07 05/08/18 08:07 05/08/18 08:07 Laboratory Results 05/08/18 04:46 05/06/18 04:55 05/07/18 05/08/18 05/09/18 05:59 05:59 05:59 Intake Total 1000 1524 Output Total 5 Balance 1000 1519 ICD10 Worksheet Patient Problems: Problems Problem Status Onset Pneumonia Acute
[2018-05-08 12:29] VITALS: BP 118/65
--- NOTE | 2018-05-08 12:40 | PDDCSUM ---
Discharge Summary Discharge Summary: The patient is a 68-year-old female with PMH lung cancer who was admitted for spiking fevers which started 2 weeks prior and was found to have postobstructive pneumonia. She was treated accordingly with IV abx. She has now transitioned to Doxycycline x 5 more days. She is on RA. She has not had further fever recurrence. she is back to her baseline. f/U: with [facility] on Saturday for treatment DDX: Community acquired PNA Sepsis w/ Fevers and tachycardia, 2/2 above Lung carcinoma, on immunotherapy/chemotherapy: CT shows disease progression Hyponatremia, improved Anemia, stable Hyperlipidemia Exam: NAD AAOX3 RRR CTA B S/NT/ND MEDS: SEE MED REC TOTAL TIME SPENT ON D/C IS 35 MINS
--- NOTE | 2018-05-10 16:40 | ASDISCHSUM ---
Discharge Information Plan Status:Home with No Needs Medically Cleared to Leave:05/10/2018 Discharge Date:05/08/2018 01:43 PM CM D/C Disposition:Home, Routine, Self-Care ADT D/C Disposition:Home, Routine, Self-Care Projected Discharge Date:05/08/2018 11:00 AM Transportation at D/C: Discharge Delay Reason: Follow-Up Date:05/08/2018 11:00 AM Discharge Slot: Final Diagnosis: Placement Information Referral Type:Palliative Care Referral ID:[id number] Provider Name: Address 1: Phone Number: Address 2: Fax Number: City: Selection Factors: State: Patient Contact Information Contact Name:CAROLCHRISBROOKE Relationship: Address:[address] City:[facility] Phone: [facility] Code:[place] [address] Email: Financial Information Financial Class:Medicare Advantage Plans Primary Plan Desc:[employer] ADV Primary Plan Number:[id number] Secondary Plan Desc: Secondary Plan Number: Assessment Information [facility] CM Progress Note CM Note CM Note Notes: 05/06/2018 Case Management Note Discussed pt during rounds this morning. Pt admitted for possible pneumonia with a history of stage 4A non small cell lung cancer. Percy from [facility] palliative team met w/pt. Please see note. Per Percy pt declined referral for outpatient palliative at this time. Discussed w/PT. PT cleared for home. Pt lives with and has supportive family. Case Management d/c poc: anticipating independent with follow up as directed. Case Management to follow. Date Signed: 05/06/2018 04:41 PM Electronically Signed By:Roxie Guevara RN Intervention Information
== END 2018-05-08 13:43 | disposition home or self-care (01) | DRG 871 ==
LOC: F1N 21:05
PROVIDERS: ADMIT Internal Medicine; ATTEND Internal Medicine
DX: A41.9 Sepsis, unspecified organism (principal); J18.8 Other pneumonia, unspecified organism; C34.91 Malignant neoplasm of unspecified part of right bronchus or lung; E87.1 Hypo-osmolality and hyponatremia; C79.51 Secondary malignant neoplasm of bone; E86.9 Volume depletion, unspecified; E78.5 Hyperlipidemia, unspecified; Z87.891 Personal history of nicotine dependence; C44.49 Other specified malignant neoplasm of skin of scalp and neck
CPT/HCPCS: 96365; 97161-GP; J0456; J0696; J2405; Q9967

== ENCOUNTER → 2018-07-08 | Outpatient (CLI) | payer OTHER | LOC: BMCIMAGING 12:28 ==

== ENCOUNTER → 2018-07-17 | Outpatient (CLI) | payer OTHER | LOC: FIMAGING 10:39 ==

== ENCOUNTER 2018-07-28 22:47 | Emergency (ER) | payer OTHER | END 2018-07-29 02:55 | disposition home or self-care (01) ==